=== PATIENT | female | born 1970 | race Caucasian/White ===

== ENCOUNTER 2016-10-28 21:37 | Emergency (ER) | payer OTHER ==
[~2016-10-28] VITALS: Ht 157.5 cm; Wt 53.0 kg
[~2016-10-28 21:37] MED LIST: CIPR500T4 PO; CYCL-319 PO; DOCU-144 PO; HYDR-3498 PO; METR500T PO; NAPR-260 PO
[2016-10-28 21:40] VITALS: Ht 157.5 cm; Wt 53.0 kg
[2016-10-29] MEDS ORDERED: AMO500 PO (00:12)
[2016-10-29] MEDS ORDERED: NPH10OT BOTH EARS (00:13)
[2016-10-29] MEDS ORDERED: IBUP-1542 PO (00:13)
--- NOTE | 2016-10-29 01:22 | ERD ---
ER Documentation Chief Complaint Date/Time DATE: 10/29/16 TIME: 01:20 Chief Complaint trung ear ache x 2 days HPI This is a 46-year-old female presents to the ER with a one-week history of cough and cold symptoms. Patient also has a sore throat. She is also bilateral ear pain. Patient denies any chest pain or any shortness of breath. She denies any fevers or chills. There are no sick contacts at home. ROS 12 point review of systems was done, all negative except per HPI. Medications Home Meds Active Scripts Ibuprofen* (Motrin*) 600 Mg Tab, 600 MG PO Q6, #30 TAB Prov:NAWAF BARBA 10/29/16 Neomycin/Polymyxin/Hydrocort* (Cortisporin* Otic) 10 Ml Susp, 4 DROP BOTH EARS QID for 7 Days, EA Prov:NAWAF BARBA 10/29/16 Amoxicillin* (Amoxicillin*) 500 Mg Cap, 500 MG PO BID for 10 Days, CAP Prov:NAWAF BARBA 10/29/16 Naproxen* (Naprosyn*) 500 Mg Tablet, 500 MG PO BID Y for PAIN AND/OR INFLAMMATION, #30 TAB Prov:Ami Fitzgerald PA-C 07/30/16 Docusate Sodium* (Colace*) 100 Mg Capsule, 100 MG PO TID, #30 CAP Prov:VIDYA GAN PA-C 01/02/16 Hydrocodone Bit-Acetaminophen* ([place]*) 5-325 Mg Tab, 1 TAB PO Q6 Y for PAIN, # 20 TAB Prov:VIDYA GAN PA-C 01/02/16 Metronidazole* (Flagyl*) 500 Mg Tablet, 500 MG PO BID for 7 Days, TAB Prov:VIDYA GANC 01/02/16 Ciprofloxacin Hcl* (Ciprofloxacin Hcl*) 500 Mg Tablet, 500 MG PO BID for 7 Days , TAB Prov:VIDYA GAN PA-C 01/02/16 Cyclobenzaprine Hcl* (Cyclobenzaprine Hcl*) 10 Mg Tablet, 10 MG PO TID, #20 TAB Prov:REDD REY PA-C 08/03/15 Hydrocodone Bit-Acetaminophen* ([place]*) 5-325 Mg Tab, 1 TAB PO Q6 Y for PAIN, # 10 TAB Prov:REDD REY PA-C 08/03/15 Naproxen* (Naprosyn*) 500 Mg Tablet, 500 MG PO BID Y for PAIN AND/OR INFLAMMATION, #30 TAB Prov:REDD REY PA-C 08/03/15 Allergies Allergies: Coded Allergies: No Known Allergies (Verified Allergy, Mild, 01/02/15) PMhx/Soc History of Surgery: Yes (BRAIN EMBOLUS) Anesthesia Reaction: No Hx Neurological Disorder: Yes (BRAIN EMBOLI 1987, 1995) Hx Respiratory Disorders: No Hx Cardiac Disorders: No Hx Psychiatric Problems: No Hx Miscellaneous Medical Probl: No Hx Alcohol Use: No Hx Substance Use: No Hx Tobacco Use: No Physical Exam Vitals Vital Signs Date Time Temp Pulse Resp B/P Pulse Ox O2 Delivery O2 Flow Rate FiO2 10/28/16 21:40 98.2 77 18 130/60 100 Physical Exam GENERAL: The patient is well-developed, well-nourished, in no acute distress. NECK: Cervical spine is non tender with no step off. Supple, no nuchal rigidity HEENT: Atraumatic. Pupils equal, round and reactive to light. Extraocular muscles are grossly intact. Conjunctivae pink, no discharge. Bilateral discharge from external auditory canals. bilateral tragus tenderness. Tonsilar erythema with no exudates or uvular deviation. Clear rhinorrhea. RESPIRATORY: Clear to auscultation bilaterally. There are no rales, wheezes or rhonchi. HEART: Regular rate and rhythm. No murmurs, clicks, rubs or gallops. EXTREMITIES: No clubbing or cyanosis. Full range of motion. Grossly neurovascularly intact. NEUROLOGIC: Alert and oriented. Cranial nerves II through XII are intact. SKIN: There is no rash. The skin is warm and dry. Procedures/MDM Differential diagnosis includes but is not limited to; Viral URI, allergic rhinitis, bronchitis, pertussis,pneumonia. is likely viral in etiology. Clinical suspicion for pneumonia is low as patient appears well, is not hypoxic or in any respiratory distress. Additionally, patient does have external otitis. She will be sent home with amoxicillin and with Corticosporin. Plan was discussed with patient they understand and agree. Patient needs to follow up with PCP in 1-2 days or return to ER sooner if symptoms worsen. Departure Diagnosis: Primary Impression: Otitis externa Condition: Stable Patient Instructions: External Ear Infection (Adult) Additional Instructions: Call your primary care doctor TOMORROW for an appointment during the next 1-2 days.See the doctor sooner or return here if your condition worsens before your appointment time. NAWAF BARBA Oct 29, 2016 01:22
== END 2016-10-29 00:18 | disposition home or self-care (01) ==
LOC: FTE 21:37
DX: H60.93 Unspecified otitis externa, bilateral (principal)
CPT/HCPCS: 99283

== ENCOUNTER 2017-05-14 01:33 | Emergency (ER) | payer OTHER ==
[~2017-05-14] VITALS: Ht 157.5 cm; Wt 52.0 kg
[~2017-05-14 01:33] MED LIST changes: +AMO500 PO; +IBUP-1542 PO; +NPH10OT BOTH EARS
[2017-05-14 01:38] VITALS: Ht 157.5 cm; Wt 52.0 kg
[2017-05-14] MEDS ORDERED: SOD CHLORIDE 0.9% 1,000 ML IV STA (02:01)
[2017-05-14] MEDS ORDERED: FAMOTIDINE 20 MG INJ INJ STA (02:01)
[2017-05-14] MEDS ORDERED: DIPHENHYDRAMINE 50 MG INJ IV STA (02:01)
[2017-05-14] MEDS ORDERED: METHYLPREDNISOLONE 125 MG INJ IV STA (02:01)
[2017-05-14] MEDS ORDERED: BEN25 PO (02:43)
[2017-05-14] MEDS ORDERED: PRED20TA PO (02:43)
--- NOTE | 2017-05-14 02:43 | ERD ---
ER Documentation Chief Complaint Date/Time DATE: 05/14/17 TIME: 02:41 Chief Complaint hives and total body itch after taking meloxicam HPI This is a 47-year-old female who presents to the emergency room for evaluation of a possible allergic reaction. The patient does state that she took a meloxicam today. She states that she has been feeling itching, and has had a red rash over her body. The patient denies any throat swelling or difficulty swallowing or breathing ROS All systems reviewed and are negative except as per history of present illness. Medications Home Meds Active Scripts Ibuprofen* (Motrin*) 600 Mg Tab, 600 MG PO Q6, #30 TAB Prov:NAWAF BARBA 10/29/16 Neomycin/Polymyxin/Hydrocort* (Cortisporin* Otic) 10 Ml Susp, 4 DROP BOTH EARS QID for 7 Days, EA Prov:NAWAF BARBA 10/29/16 Amoxicillin* (Amoxicillin*) 500 Mg Cap, 500 MG PO BID for 10 Days, CAP Prov:NAWAF BARBA 10/29/16 Naproxen* (Naprosyn*) 500 Mg Tablet, 500 MG PO BID Y for PAIN AND/OR INFLAMMATION, #30 TAB Prov:Ami Fitzgerald PA-C 07/30/16 Docusate Sodium* (Colace*) 100 Mg Capsule, 100 MG PO TID, #30 CAP Prov:VIDYA GAN PA-C 01/02/16 Hydrocodone Bit-Acetaminophen* ([place]*) 5-325 Mg Tab, 1 TAB PO Q6 Y for PAIN, # 20 TAB Prov:VIDYA GAN PA-C 01/02/16 Metronidazole* (Flagyl*) 500 Mg Tablet, 500 MG PO BID for 7 Days, TAB Prov:VIDYA GANC 01/02/16 Ciprofloxacin Hcl* (Ciprofloxacin Hcl*) 500 Mg Tablet, 500 MG PO BID for 7 Days , TAB Prov:VIDYA GAN PA-C 01/02/16 Cyclobenzaprine Hcl* (Cyclobenzaprine Hcl*) 10 Mg Tablet, 10 MG PO TID, #20 TAB Prov:REDD REY PA-C 08/03/15 Hydrocodone Bit-Acetaminophen* ([place]*) 5-325 Mg Tab, 1 TAB PO Q6 Y for PAIN, # 10 TAB Prov:REDD REY PA-C 08/03/15 Naproxen* (Naprosyn*) 500 Mg Tablet, 500 MG PO BID Y for PAIN AND/OR INFLAMMATION, #30 TAB Prov:REDD REY PA-C 08/03/15 Allergies Allergies: Coded Allergies: No Known Allergies (Verified Allergy, Mild, 01/02/15) PMhx/Soc History of Surgery: Yes (BRAIN EMBOLUS) Anesthesia Reaction: No Hx Neurological Disorder: Yes (BRAIN EMBOLI 1987, 1995) Hx Respiratory Disorders: No Hx Cardiac Disorders: No Hx Psychiatric Problems: No Hx Miscellaneous Medical Probl: No Hx Alcohol Use: No Hx Substance Use: No Hx Tobacco Use: No Physical Exam Vitals Vital Signs Date Time Temp Pulse Resp B/P Pulse Ox O2 Delivery O2 Flow Rate FiO2 05/14/17 01:38 99.7 103 18 117/67 97 Physical Exam INITIAL VITAL SIGNS: Reviewed by me GENERAL: The patient is well developed and appropriate for usual state of health in no apparent distress HEENT: No pharyngeal edema, pupils equal, round, and reactive to light. EOMI. There is no scleral icterus. NECK: C-spine is soft and supple, there is no meningismus. There is no cervical lymphadenopathy. LUNGS: Clear to auscultation bilaterally. There are no rales, wheezes or rhonchi. HEART: Regular rate and rhythm, no murmurs, clicks, rubs or gallops. ABDOMEN: Soft, non-tender, non-distended. There are bowel sounds in all four quadrants. No rebound or guarding. EXTREMITIES: There is no peripheral cyanosis or edema. No focal swelling or erythema. NEUROLOGICAL: The patient moves all four extremities with 5/5 strength. Cranial nerves II - XII are intact. Normal gait. Alert and oriented SKIN: Maculopapular rash noted over the torso and upper lower extremities, there is no apparent rash or petechiae. HEME/LYMPHATIC: There is no evidence of excessive bruising or lymphedema. PSYCHIATRIC: The patient does not appear anxious or depressed. Results 24 hrs Current Medications Medications (Trade) Dose Ordered Sig/Balaji Route PRN Reason Start Time Stop Time Status Last Admin Dose Admin Diphenhydramine HCl (Benadryl) 25 mg ONCE STAT IV 05/14/17 02:01 05/14/17 02:02 DC 05/14/17 02:09 Famotidine (Pepcid Iv) 20 mg ONCE STAT INJ 05/14/17 02:01 05/14/17 02:02 DC 05/14/17 02:10 Methylprednisolone Sodium Succinate 125 mg 125 mg ONCE STAT IV 05/14/17 02:01 05/14/17 02:02 DC 05/14/17 02:09 Sodium Chloride (NS) 1,000 ml @ 1,000 mls/hr Q1H STAT IV 05/14/17 02:01 05/14/17 03:00 05/14/17 02:09 Procedures/MDM This 47-year-old female presents to the ER for evaluation of possible allergic reaction. When I evaluated this patient she did have a diffuse rash noted over her body, no skin sloughing, no pharyngeal edema, she is tolerating her secretions and is in no acute distress. The patient was given a cocktail of Benadryl, Pepcid, and Solu-Medrol. Upon my reevaluation she states she is feeling better. I advised her to discontinue the use of meloxicam and she will be discharged home with a prescription for Benadryl at this time. Departure Diagnosis: Primary Impression: Allergic reaction Condition: Stable MIRANDA JOLLY DO May 14, 2017 02:43
[2017-05-14 02:55] VITALS: BP 122/71; PULSE 72; RESP 20
== END 2017-05-14 02:55 | disposition home or self-care (01) ==
LOC: E/R 01:33
DX: R21 Rash and other nonspecific skin eruption (principal); T39.395A Adverse effect of other nonsteroidal anti-inflammatory drugs [NSAID], initial encounter
CPT/HCPCS: 96374; 96375; J1200; J2930; J7030; Z7502; Z7610

== ENCOUNTER 2017-05-23 02:16 | Emergency (ER) | payer OTHER ==
[~2017-05-23] VITALS: Ht 157.5 cm; Wt 52.0 kg
[~2017-05-23 02:16] MED LIST changes: +BEN25 PO; +PRED20TA PO
[2017-05-23 02:20] VITALS: Ht 157.5 cm; Wt 52.0 kg
--- NOTE | 2017-05-23 03:56 | ERD ---
ER Documentation Chief Complaint Date/Time DATE: 05/23/17 TIME: 03:55 Chief Complaint right eye pain when she poke right eye w/ a linen HPI 47-year-old female presents to emergency department for complaints of right eye pain after being poked with a tip of a linen today. Patient's complains of pain sharp pain for/10 scale, is worse upon opening and closing the eye. Patient denies any vision changes. Patient denies any foreign body sensation in the eye. Patient denies any eye discharge. Patient did not take any medications help with symptoms. ROS All systems reviewed and are negative except as per history of present illness. Medications Home Meds Active Scripts Hydrocodone/Acetaminophen ([place] 5-325 Tablet) 1 Each Tablet, 1 TAB PO Q6H Y for SEVERE PAIN LEVEL 7-10, #7 TAB Prov:SOLOMON MENDOZA NP 05/23/17 Moxifloxacin Hcl* (Vigamox*) 0.5% - 3 Ml Opht, 1 DROP RIGHT EYE TID, #1 EA Prov:SOLOMON MENDOZA NP 05/23/17 Prednisone* (Prednisone*) 20 Mg Tab, 40 MG PO DAILY for 4 Days, TAB Prov:MIRANDA JOLLY DO 05/14/17 Diphenhydramine Hcl* (Benadryl*) 25 Mg Cap, 25 MG PO Q6 Y for ITCHING/RASH, #30 TAB Prov:MIRANDA JOLLY DO 05/14/17 Ibuprofen* (Motrin*) 600 Mg Tab, 600 MG PO Q6, #30 TAB Prov:NAWAF BARBA 10/29/16 Neomycin/Polymyxin/Hydrocort* (Cortisporin* Otic) 10 Ml Susp, 4 DROP BOTH EARS QID for 7 Days, EA Prov:NAWAF BARBA C 10/29/16 Amoxicillin* (Amoxicillin*) 500 Mg Cap, 500 MG PO BID for 10 Days, CAP Prov:NAWAF BARBA C 10/29/16 Naproxen* (Naprosyn*) 500 Mg Tablet, 500 MG PO BID Y for PAIN AND/OR INFLAMMATION, #30 TAB Prov:Ami Fitzgerald PA-C 07/30/16 Docusate Sodium* (Colace*) 100 Mg Capsule, 100 MG PO TID, #30 CAP Prov:VIDYA GANC 01/02/16 Hydrocodone Bit-Acetaminophen* ([place]*) 5-325 Mg Tab, 1 TAB PO Q6 Y for PAIN, # 20 TAB Prov:VIDYA GAN-C 01/02/16 Metronidazole* (Flagyl*) 500 Mg Tablet, 500 MG PO BID for 7 Days, TAB Prov:VIDYA GAN-C 01/02/16 Ciprofloxacin Hcl* (Ciprofloxacin Hcl*) 500 Mg Tablet, 500 MG PO BID for 7 Days , TAB Prov:VIDYA GAN-C 01/02/16 Cyclobenzaprine Hcl* (Cyclobenzaprine Hcl*) 10 Mg Tablet, 10 MG PO TID, #20 TAB Prov:REDD REY PA-C 08/03/15 Hydrocodone Bit-Acetaminophen* ([place]*) 5-325 Mg Tab, 1 TAB PO Q6 Y for PAIN, # 10 TAB Prov:REDD REY PA-C 08/03/15 Naproxen* (Naprosyn*) 500 Mg Tablet, 500 MG PO BID Y for PAIN AND/OR INFLAMMATION, #30 TAB Prov:REDD REY PA-C 08/03/15 Allergies Allergies: Coded Allergies: No Known Allergies (Verified Allergy, Mild, 01/02/15) PMhx/Soc History of Surgery: Yes (BRAIN EMBOLUS) Anesthesia Reaction: No Hx Neurological Disorder: Yes (BRAIN EMBOLI 1987, 1995) Hx Respiratory Disorders: No Hx Cardiac Disorders: No Hx Psychiatric Problems: No Hx Miscellaneous Medical Probl: No Hx Alcohol Use: No Hx Substance Use: No Hx Tobacco Use: No Smoking Status: Never smoker FmHx Family History: No coronary disease, No diabetes, No other Physical Exam Vitals Vital Signs Date Time Temp Pulse Resp B/P Pulse Ox O2 Delivery O2 Flow Rate FiO2 05/23/17 02:20 97.8 80 20 128/59 98 Physical Exam GENERAL: The patient is well developed and appropriate for usual state of health, in no apparent distress. HEENT: Atraumatic. Lateral eyes are PERRL EOM intact. Noted right eye conjunctiva to be erythematous and tearing. Left eye conjunctiva is normal. Ears : Normal tympanic membrane, no erythema or bulging. No ear canal swelling. No ear discharge. Nose: normal nasal turbinates, no erythema or swelling. Normal nasal discharge. Throat: oropharynx clear. No tonsillar swelling or tonsillar exudates. No lymphadenopathy. CHEST: Clear to auscultation bilaterally. There are no rales, wheezes or rhonchi. HEART: Regular rate and rhythm. No murmurs, clicks, rubs or gallops. No S3 or S4. ABDOMEN: Soft, nontender and nondistended. Good bowel sounds. No rebound or guarding. No gross peritonitis. No gross organomegaly or masses. No [place]keon sign or Mc[place] point tenderness. BACK: No midline or flank tenderness. EXTREMITIES: Equal pulses bilaterally. There is no peripheral clubbing, cyanosis or edema. No focal swelling or erythema. Full range of motion. Grossly neurovascularly intact. NEURO: Alert and oriented. Cranial nerves 2-12 intact. Motor strength in all 4 extremities with 5/5 strength. Sensation grossly intact. Normal speech and gait. SKIN: There is no apparent rash or petechia. The skin is warm and dry. HEMATOLOGIC AND LYMPHATIC: There is no evidence of excessive bruising or lymphedema. No gross cervical, axillary, or inguinal lymphadenopathy. Results 24 hrs Current Medications Medications (Trade) Dose Ordered Sig/Balaji Route PRN Reason Start Time Stop Time Status Last Admin Dose Admin Tetracaine HCl (Tetracaine 0.5% Steri-Unit Sujata) 1 drop ONCE ONCE RIGHT EYE 05/23/17 04:00 05/23/17 04:01 DC Fluorescein Sodium (Tflae-J-Jyowm) 1 strip ONCE ONCE RIGHT EYE 05/23/17 04:00 05/23/17 04:01 DC Procedure Note: After obtaining informed consent, the _right eye was numbed with tetracaine ophthalmic solution and was stained using fluorescein dye. After staining the eye, A Wood's lamp was used to evaluate the eye. There is no foreign body noted in the eye. Noted corneal abrasion on the upper quadrant of the right eye. Patient tolerated procedure well. Procedures/MDM Disposition decision making: Patient symptoms with which is consistent with a corneal abrasion. No foreign body noted he is no symptoms of any acute infection. No symptoms of any acute glaucoma, retinal detachment, no vision changes. No Michael sign, no symptoms of any hyphema. Prescription was given for Vigamox, [place] for pain, is advised to see eye doctor in 1-2 days, patient was advised to return to emergency department for worsening symptoms. Disposition: Home. Stable. SOLOMON MENDOZA NP May 23, 2017 03:56
[2017-05-23] MEDS ORDERED: TETRACAINE 0.5% 4 ML OPH RIGHT EYE ONE (04:00)
[2017-05-23] MEDS ORDERED: FLUORESCEIN STRIP RIGHT EYE ONE (04:00)
[2017-05-23] MEDS ORDERED: VIGA RIGHT EYE (05:02)
[2017-05-23] MEDS ORDERED: HYDR-906 PO (05:02)
== END 2017-05-23 05:11 | disposition home or self-care (01) ==
LOC: FTE 02:16
DX: S05.01XA Injury of conjunctiva and corneal abrasion without foreign body, right eye, initial encounter (principal); W26.8XXA Contact with other sharp object(s), not elsewhere classified, initial encounter; Y92.9 Unspecified place or not applicable
CPT/HCPCS: Z7502; Z7610; 99284

== ENCOUNTER 2017-06-09 00:38 | Emergency (ER) | payer OTHER ==
[~2017-06-09] VITALS: Wt 62.0 kg
[~2017-06-09 00:38] MED LIST changes: +HYDR-906 PO; +VIGA RIGHT EYE
[2017-06-09 01:45] VITALS: TEMP 98
--- NOTE | 2017-06-09 01:57 | ERA ---
ER Documentation Chief Complaint Date/Time DATE: 06/09/17 TIME: 01:57 Chief Complaint FUCHS X2 days HPI The patient is a 47-year-old female, presenting with acute on chronic right- sided headache for the last 2 days. She had similar symptoms previously, denies fever, blurred vision, facial pain, neck pain, chest pain, dyspnea, abdominal pain, vomiting with dysuria. She does not smoke nor drink, has a lot of stress in her life at this time Past medical history: History of brain embolism Past medical history: Surgery due to brain embolism many years ago ROS All systems reviewed and are negative except as per history of present illness. Medications Home Meds Active Scripts Ibuprofen* (Motrin*) 600 Mg Tab, 600 MG PO Q6H Y for PAIN, #20 TAB Prov:BETTIE LEWIS MD 06/09/17 Reported Medications Acetaminophen* (Tylenol*) 500 Mg Tab, 500 MG PO Q4H Y for MILD PAIN LEVEL 1-3, TAB 06/09/17 Discontinued Scripts Hydrocodone/Acetaminophen ([place] 5-325 Tablet) 1 Each Tablet, 1 TAB PO Q6H Y for SEVERE PAIN LEVEL 7-10, #7 TAB Prov:SOLOMON MENDOZA NP 05/23/17 Moxifloxacin Hcl* (Vigamox*) 0.5% - 3 Ml Opht, 1 DROP RIGHT EYE TID, #1 EA Prov:SOLOMON MENDOZA NP 05/23/17 Prednisone* (Prednisone*) 20 Mg Tab, 40 MG PO DAILY for 4 Days, TAB Prov:MIRANDA JOLLY DO 05/14/17 Diphenhydramine Hcl* (Benadryl*) 25 Mg Cap, 25 MG PO Q6 Y for ITCHING/RASH, #30 TAB Prov:MIRANDA JOLLY DO 05/14/17 Ibuprofen* (Motrin*) 600 Mg Tab, 600 MG PO Q6, #30 TAB Prov:NAWAF BARBA 10/29/16 Neomycin/Polymyxin/Hydrocort* (Cortisporin* Otic) 10 Ml Susp, 4 DROP BOTH EARS QID for 7 Days, EA Prov:NAWAF BARBA C 10/29/16 Amoxicillin* (Amoxicillin*) 500 Mg Cap, 500 MG PO BID for 10 Days, CAP Prov:NAWAF BARBA 10/29/16 Naproxen* (Naprosyn*) 500 Mg Tablet, 500 MG PO BID Y for PAIN AND/OR INFLAMMATION, #30 TAB Prov:Ami Fitzgerald PA-C 07/30/16 Docusate Sodium* (Colace*) 100 Mg Capsule, 100 MG PO TID, #30 CAP Prov:VIDYA GANC 01/02/16 Hydrocodone Bit-Acetaminophen* ([place]*) 5-325 Mg Tab, 1 TAB PO Q6 Y for PAIN, # 20 TAB Prov:VIDYA GAN PA-C 01/02/16 Metronidazole* (Flagyl*) 500 Mg Tablet, 500 MG PO BID for 7 Days, TAB Prov:VIDYA GNA PA-C 01/02/16 Ciprofloxacin Hcl* (Ciprofloxacin Hcl*) 500 Mg Tablet, 500 MG PO BID for 7 Days , TAB Prov:VIDYA GAN PA-C 01/02/16 Cyclobenzaprine Hcl* (Cyclobenzaprine Hcl*) 10 Mg Tablet, 10 MG PO TID, #20 TAB Prov:REDD REY PA-C 08/03/15 Hydrocodone Bit-Acetaminophen* ([place]*) 5-325 Mg Tab, 1 TAB PO Q6 Y for PAIN, # 10 TAB Prov:REDD REY PA-C 08/03/15 Naproxen* (Naprosyn*) 500 Mg Tablet, 500 MG PO BID Y for PAIN AND/OR INFLAMMATION, #30 TAB Prov:REDD REY PA-C 08/03/15 Allergies Allergies: Coded Allergies: No Known Allergies (Unverified Allergy, Unknown, 06/09/17) PMhx/Soc History of Surgery: Yes (BRAIN EMBOLUS) Anesthesia Reaction: No Hx Neurological Disorder: Yes (BRAIN EMBOLI 1987, 1995) Hx Respiratory Disorders: No Hx Cardiac Disorders: No Hx Psychiatric Problems: No Hx Miscellaneous Medical Probl: No Hx Alcohol Use: No Hx Substance Use: No Hx Tobacco Use: No Physical Exam Vitals Vital Signs Date Time Temp Pulse Resp B/P Pulse Ox O2 Delivery O2 Flow Rate FiO2 06/09/17 03:19 56 12 117/73 100 Room Air 06/09/17 01:45 98.0 68 16 137/77 100 Room Air 06/09/17 01:08 98.0 66 20 148/90 100 Physical Exam Const: No acute distress.Very anxious Head: Atraumatic. Eyes: Normal Conjunctiva. ENT: Normal External Ears, Nose and Mouth. Neck: Full range of motion. No meningismus. Resp: Clear to auscultation bilaterally. Cardio: Regular rate and rhythm. Abd: Soft, non distended, normal bowel sounds, non tender. Skin: No petechiae or rashes. Back: No midline or flank tenderness. Ext: No cyanosis, or edema. Neur: Awake and alert. No focal deficit Psych: Normal Mood and Affect. Result Diagram: 06/09/17 0200 06/09/17 0200 Results 24 hrs Laboratory Tests Test 06/09/17 02:00 White Blood Count 4.810^3/ul Red Blood Count 4.1810^6/ul Hemoglobin 12.5g/dl Hematocrit 36.9% Mean Corpuscular Volume 88.3fl Mean Corpuscular Hemoglobin 29.9pg Mean Corpuscular Hemoglobin Concent 33.9g/dl Red Cell Distribution Width 12.7% Platelet Count 07280^3/UL Mean Platelet Volume 10.0fl Neutrophils % 51.9% Lymphocytes % 29.7% Monocytes % 14.7% Eosinophils % 2.7% Basophils % 0.8% Nucleated Red Blood Cells % 0.0/100WBC Neutrophils # (Manual) 2.510^3/ul Lymphocytes # 1.410^3/ul Monocytes # 0.710^3/ul Eosinophils # 0.110^3/ul Basophils # 0.010^3/ul Nucleated Red Blood Cells # 0.010^3/ul Prothrombin Time 12.3Sec Prothrombin Time Ratio 1.0 INR International Normalized Ratio 0.91 Activated Partial Thromboplast Time 28.0Sec Sodium Level 137mmol/L Potassium Level 3.4mmol/L Chloride Level 106mmol/L Carbon Dioxide Level 26mmol/L Anion Gap 8 Blood Urea Nitrogen 13mg/dl Creatinine 0.52mg/dl Glucose Level 83mg/dl Calcium Level 9.2mg/dl Current Medications Medications (Trade) Dose Ordered Sig/Balaji Route PRN Reason Start Time Stop Time Status Last Admin Dose Admin Ondansetron HCl (Zofran Inj) 4 mg ONCE STAT IV 9/9/17 02:03 06/09/17 02:08 DC 06/09/17 02:11 Morphine Sulfate (morphine) 4 mg ONCE STAT IV 06/09/17 02:03 06/09/17 02:08 DC 06/09/17 02:12 Potassium Chloride (Klor-Con 20) 20 meq ONCE ONCE PO 06/09/17 04:19 06/09/17 04:20 DC 06/09/17 04:30 Procedures/[place] [id number] Radiology Main Line: [phone] DIAGNOSTIC IMAGING REPORT Patient: PANCHO CASTORENA : 1970 Age: 47 Sex: F MR #: [id number] DOS: 06/09/17 0203 Ordering MD: BETTIE LEWIS MD Location: E/R Room/Bed: PROCEDURE: Noncontrast CT Head. CLINICAL INDICATION: Pain. TECHNIQUE: Noncontrast CT of the head was obtained. The administered radiation dose was CTDI vol = 45 mGy, DLP = 720 mGy-cm. One or more of the following dose reduction techniques were used: automated exposure control, adjustment of the mA and/or kV according to patient size and/or use of iterative reconstruction technique. COMPARISON: 10/01/2014 FINDINGS: The ventricles and cortical sulci are mild to moderately enlarged. There is mild to moderate decreased attenuation within the periventricular and subcortical white matter compatible with chronic microvascular changes. 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 There are no definite changes compared to the prior exam. There is no acute intracranial hemorrhage or extra-axial fluid collection. There is no mass effect. No midline shift is identified. There is no loss of allred-white differentiation to suggest acute infarction. The orbits are within normal limits. The paranasal sinuses are well aerated. No destructive osseous lesion is identified. IMPRESSION: No acute findings. Mild to moderate diffuse parenchymal volume loss and chronic microvascular changes. RPTAT: HIKT .Mono Dewitt MD, Date Time Electronically viewed and signed by .Mono Dewitt MD, MD on 06/09/2017 03:22 .T/ CC: BETTEI LEWIS MD MEDICAL MAKING DECISION: The patient is a 47-year-old female, presenting with acute on chronic headache of unclear etiology, acute hypokalemia. She was treated with morphine 4 mg IV for pain, Zofran 4 mg IV for nausea and potassium chloride 20 mEq p.o. for acute hypokalemia with good response The differential diagnoses considered include but are not limited to subarachnoid hemorrhage, occult trauma, CVA, meningitis, encephalitis, hypertension, tension, migraine, cluster, narcotic withdrawal, cervical spine disease. Departure Diagnosis: Primary Impression: Headache Additional Impression: Hypokalemia Condition: Good Comments She was discharged with Motrin I discussed the findings with the patient. I advised the patient to follow-up with the primary physician in about 1-2 days, sooner if needed and return if any concern. The patient's blood pressure was elevated (>120/80) but appears stable without evidence of hypertension emergency or urgency. The patient was counseled about the risks of hypertension and urged to pursue outpatient monitoring and therapy within a week with their primary care physician. BETTIE LEWIS MD Jun 09, 2017 01:57
[2017-06-09] MEDS ORDERED: morphine 4 MG/ML VIAL IV STA (02:03)
[2017-06-09] MEDS ORDERED: ONDANSETRON 4 MG INJ IV STA (02:03)
[2017-06-09 02:28] LABS: BASOPHILS % 0.8 % (0.0-2.0); EOSINOPHILS # 0.1 10^3/ul (0.0-0.5); EOSINOPHILS % 2.7 % (0.0-7.0); HEMATOCRIT 36.9 % (37.0-47.0); HEMOGLOBIN 12.5 g/dl (12.0-16.0); LYMPHOCYTES # 1.4 10^3/ul (0.8-2.9); LYMPHOCYTES % 29.7 % (15.0-51.0); MEAN CORPUSCULAR HEMOGLOBIN 29.9 pg (29.0-33.0); MEAN CORPUSCULAR HGB CONC 33.9 g/dl (32.0-37.0); MEAN CORPUSCULAR VOLUME 88.3 fl (82.0-101.0); MONOCYTE # 0.7 10^3/ul (0.3-0.9); MONOCYTES % 14.7 % (0.0-11.0); NEUTROPHILS % 51.9 % (39.0-77.0); PLATELET COUNT 263 10^3/UL (140-415); RED BLOOD COUNT 4.18 10^6/ul (4.20-5.40); RED CELL DISTRIBUTION WIDTH 12.7 % (11.5-14.5); WHITE BLOOD COUNT 4.8 10^3/ul (4.8-10.8)
[2017-06-09 02:45] LABS: INR 0.91; PROTIME 12.3 Sec (12.2-14.2)
[2017-06-09 02:52] LABS: CALCIUM 9.2 mg/dl (8.4-10.2); CREATININE 0.52 mg/dl (0.44-1.00); POTASSIUM 3.4 mmol/L (3.5-5.1)
[2017-06-09] MEDS ORDERED: TYL500 PO (03:10)
--- NOTE | 2017-06-09 03:22 | RADRPT ---
PROCEDURE: Noncontrast CT Head. CLINICAL INDICATION: Pain. TECHNIQUE: Noncontrast CT of the head was obtained. The administered radiation dose was CTDI vol = 45 mGy, DLP = 720 mGy-cm. One or more of the following dose reduction techniques were used: automate d exposure control, adjustment of the mA and/or kV according to patient size and/or use of iterative reconstruction technique. COMPARISON: 10/01/2014 FINDINGS: The ventricles and cortical sulci are mild to moderately enlarged. There is mild to moderate decrea sed attenuation within the periventricular and subcortical white matter compatible with chronic micr ovascular changes. Prior bilateral pterional craniotomies are noted with aneurysm clips in the [place] region s bilaterally. 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 There are no definite changes compared to the prior exam. There is no acute intracranial hemorrhage or extra-axial fluid collection. There is no mass effect. No midline shift is identified. There is no loss of allred-white differentiation to suggest acute inf arction. The orbits are within normal limits. The paranasal sinuses are well aerated. No destructive osseous lesion is identified. IMPRESSION: No acute findings. Mild to moderate diffuse parenchymal volume loss and chronic microvascular gary es. RPTAT: HIKT .Mono Dewitt MD, MD Date Time Electronically viewed and signed by .Mono Dewitt MD, MD on 06/09/2017 03:22 .T/
[2017-06-09] MEDS ORDERED: POTASSIUM CHLORIDE (SR) 20 MEQ TAB PO ONE (04:19)
[2017-06-09 04:30] VITALS: BP 119/64; PULSE 64; RESP 16
[2017-06-09] MEDS ORDERED: IBUP-1542 PO (04:43)
== END 2017-06-09 04:50 | disposition home or self-care (01) ==
LOC: E/R 00:38
DX: R51 Headache (principal); E87.6 Hypokalemia; R40.2142 Coma scale, eyes open, spontaneous, at arrival to emergency department; R40.2252 Coma scale, best verbal response, oriented, at arrival to emergency department; R40.2362 Coma scale, best motor response, obeys commands, at arrival to emergency department; R07.9 Chest pain, unspecified
CPT/HCPCS: 36415; 70450; 80048; 85025; 85610; 85730; 96374; 96375; J2270; J2405; Z7502; Z7610

== ENCOUNTER 2017-06-23 04:12 | Emergency (ER) | payer OTHER ==
[~2017-06-23] VITALS: Ht 154.9 cm; Wt 52.0 kg
[~2017-06-23 04:12] MED LIST changes: -AMO500 PO; -BEN25 PO; -CIPR500T4 PO; -CYCL-319 PO; -DOCU-144 PO; -HYDR-3498 PO; -HYDR-906 PO; -METR500T PO; -NAPR-260 PO; -NPH10OT BOTH EARS; -PRED20TA PO; +TYL500 PO; -VIGA RIGHT EYE
[2017-06-23 04:17] VITALS: Ht 154.9 cm; Wt 52.0 kg
[2017-06-23] MEDS ORDERED: ELIM TOP (04:40)
[2017-06-23] MEDS ORDERED: CETI10CA PO (04:43)
[2017-06-23] MEDS ORDERED: HYDR-842 PO (04:43)
--- NOTE | 2017-06-23 04:48 | ERA ---
ER Documentation Chief Complaint Date/Time DATE: 06/23/17 TIME: 04:43 Chief Complaint generalize body rash/itch x 2 weeks HPI 47-year-old female presented with a chief complaint of rash 2 weeks. Patient states that the rash is in multiple areas of the body. Has stated that she sees bugs that have crawl out of her closed. Patient has a picture of the vitals are most consistent with bedbugs. Patient states that the itching is worse at night. Patient has no medical conditions and denies daily use of any medications. Patient has had facial reconstruction surgeries. Denies fever, rapid progression of symptoms, recent antibiotic use, symptomatic close contacts , diabetes, pain, history of opening in the skin or identifiable trigger/by. Patients vaccination status is up to date. No recent travel. Patient has no other complaints and describes no other associated manifestations. Nursing notes have been reviewed and are consistent with history given. ROS All systems reviewed and are negative except as per history of present illness. Medications Home Meds Active Scripts Cetirizine Hcl* (Zyrtec*) 10 Mg Capsule, 10 MG PO DAILY for 10 Days, TAB Prov:BETTIE ABREU PA-C 06/23/17 Hydroxyzine Hcl* (Atarax*) 25 Mg Tab, 25 MG PO QHS Y for ITCHING for 10 Days, # 10 TAB Prov:BETTIE ABREU PA-C 06/23/17 Permethrin* (Elimite*) 5% Cr, 1 APPLIC TOP ONCE for 1 Day, TUB Prov:BETTIE ABREU PA-C 06/23/17 Ibuprofen* (Motrin*) 600 Mg Tab, 600 MG PO Q6H Y for PAIN, #20 TAB Prov:BETTIE LEWIS MD 06/09/17 Reported Medications Acetaminophen* (Tylenol*) 500 Mg Tab, 500 MG PO Q4H Y for MILD PAIN LEVEL 1-3, TAB 06/09/17 Allergies Allergies: Coded Allergies: No Known Allergies (Unverified Allergy, Unknown, 06/09/17) PMhx/Soc History of Surgery: Yes Anesthesia Reaction: No Hx Neurological Disorder: Yes (BRAIN EMBOLI 1987, 1995) Hx Respiratory Disorders: No Hx Cardiac Disorders: No Hx Psychiatric Problems: No Hx Miscellaneous Medical Probl: No Hx Alcohol Use: No Hx Substance Use: No Hx Tobacco Use: No Smoking Status: Never smoker Physical Exam Vitals Vital Signs Date Time Temp Pulse Resp B/P Pulse Ox O2 Delivery O2 Flow Rate FiO2 06/23/17 04:17 97.9 77 20 130/75 98 Physical Exam Const: Healthy-appearing. Well-nourished. Well-developed. No acute distress. Skin: Erythematous macular lesions on the upper thighs and near the elbows. No lichenification noted. Mild excoriation from chronic scratching. No plaques or scales.. No petechia. No ulcer, induration, jaundice. Good turgor. Ext: No cyanosis or edema noted. Head: Normocephalic. As noted in skin exam. Eyes: Non-injected; No scleral erythema, or discharge. EOMI and RODRIGO bilaterally. Ears: Normal External Ears, EACs clear, TM normal bilaterally without erythema. Nose: Normal nose without discharge, septal deviation, or sinus tenderness. Oral: No oral edema visualized. Mucous membranes moist and pink. Neck: No cervical lymphadenopathy, or masses. Trachea midline. Supple ~ No meningismus. Pulm: Good air movement in upper and lower respiratory tracts. No dyspnea, stridor, tripoding or drooling. Clear to auscultation bilaterally. Cardio: Regular rate and rhythm. No JVD grossly observed. Radial and posterior tibial pulses 2+ bilaterally. No cyanosis. Capillary refill less than 2 seconds. Abd: Soft, non tender, non distended. No guarding. Normal bowel sounds. MS: Normal motor strength, normal tone with gross examination. Back: No midline or flank tenderness. Neur: Neurovascularly intact bilaterally. Awake, alert and oriented x3. Procedures/MDM Well-appearing 47-year-old female presented with a chief complaint of rash 2 weeks as described in history and physical examination. Patient signs and symptoms are most consistent with bedbugs versus other pediculosis type infection. I will suspicion for bacterial involvement, fungal involvement or serious bacterial/systemic infection. Patient will be given pediculosis to be applied t on day 1 and on day 14. Patient will also be given hydroxyzine for itch nightly and cetirizine every morning. I have spoke with the patient regarding their condition and future management. They have verbally responded that they understand their status and treatment plan. The patients vitals are stable, and their current condition is appropriate for discharge. The patient will be given discharge instructions with return precautions. Departure Diagnosis: Primary Impression: Pediculosis Additional Impression: Mixed pediculosis infestation Condition: Stable Patient Instructions: Bedbugs Additional Instructions: Brittney un seguimiento con quezada PCP dentro de los prximos 1-3 sanders para ricardo evaluaci n ms completa y ricardo posible derivacin a un especialista. Devuelva el departamento de emergencia inmediatamente si los sntomas empeoran o cambian. Si tiene alguna pregunta con respecto a los medicamentos, consulte con quezada farmac utico o con nosotros antes de salir. Si se producen reacciones adversas mientras dale kat[facility] medicamentos, suspenda el tratamiento y regrese inmediatamente al servicio de urgencias. [place] [facility] medicamentos segn las indicaciones y complete el curso completo del tratamiento. BETTIE ABREU PA-C Jun 23, 2017 04:48
== END 2017-06-23 04:52 | disposition home or self-care (01) ==
LOC: FTE 04:12
DX: B85.4 Mixed pediculosis and phthiriasis (principal)
CPT/HCPCS: 99283

== ENCOUNTER 2017-08-16 06:31 | Emergency (ER) | payer OTHER ==
[~2017-08-16] VITALS: Ht 160 cm; Wt 62.0 kg
[~2017-08-16 06:31] MED LIST changes: +CETI10CA PO; +ELIM TOP; +HYDR-842 PO
[2017-08-16 06:33] VITALS: Ht 160 cm; Wt 62.0 kg
[2017-08-16] MEDS ORDERED: PRED20TA PO (06:55)
[2017-08-16] MEDS ORDERED: BEN25 PO (06:55)
[2017-08-16] MEDS ORDERED: predniSONE 20 MG TAB PO ONE (07:00)
[2017-08-16] MEDS ORDERED: DIPHENHYDRAMINE 50 MG INJ IM ONE (07:00)
--- NOTE | 2017-08-16 07:00 | ERD ---
ER Documentation Chief Complaint Chief Complaint rash HPI 47-year-old female took meloxicam a few days ago and developed a pruritic rash over the last 2 days. She describes as diffuse, pruritic, but no shortness of breath, facial swelling. She has not tried any new foods, medications besides this one, lotions, creams. She has no known allergies. ROS All systems reviewed and are negative except as per history of present illness. Medications Home Meds Active Scripts Diphenhydramine Hcl* (Benadryl*) 25 Mg Cap, 25 MG PO Q6, #30 CAP Prov:MARU ENGLAND PA-C 08/16/17 Prednisone* (Prednisone*) 20 Mg Tab, 40 MG PO DAILY for 4 Days, TAB Prov:MARU ENGLAND PA-C 08/16/17 Cetirizine Hcl* (Zyrtec*) 10 Mg Capsule, 10 MG PO DAILY for 10 Days, TAB Prov:BETTIE ABREU PA-C 06/23/17 Hydroxyzine Hcl* (Atarax*) 25 Mg Tab, 25 MG PO QHS Y for ITCHING for 10 Days, # 10 TAB Prov:BETTIE ABREU PA-C 06/23/17 Permethrin* (Elimite*) 5% Cr, 1 APPLIC TOP ONCE for 1 Day, TUB Prov:BETTIE ABREU PA-C 06/23/17 Ibuprofen* (Motrin*) 600 Mg Tab, 600 MG PO Q6H Y for PAIN, #20 TAB Prov:BETTIE LEWIS MD 06/09/17 Reported Medications Acetaminophen* (Tylenol*) 500 Mg Tab, 500 MG PO Q4H Y for MILD PAIN LEVEL 1-3, TAB 06/09/17 Allergies Allergies: Coded Allergies: meloxicam (Unverified Allergy, Intermediate, 08/16/17) PMhx/Soc Medical and Surgical Hx: pt denies Medical Hx, pt denies Surgical Hx History of Surgery: Yes (brain, c/s x2) Anesthesia Reaction: No Hx Neurological Disorder: Yes (BRAIN EMBOLI 1987, 1995) Hx Respiratory Disorders: No Hx Cardiac Disorders: No Hx Psychiatric Problems: No Hx Miscellaneous Medical Probl: No Hx Alcohol Use: No Hx Substance Use: No Hx Tobacco Use: No Smoking Status: Never smoker Physical Exam Vitals Vital Signs Date Time Temp Pulse Resp B/P Pulse Ox O2 Delivery O2 Flow Rate FiO2 08/16/17 06:33 97.2 68 16 139/66 99 Physical Exam Const: Well-appearing, no acute distress Head: Atraumatic Eyes: Normal Conjunctiva ENT: Normal External Ears, Nose and Mouth. Neck: Full range of motion..~ No meningismus. Resp: Clear to auscultation bilaterally Cardio: Regular rate and rhythm, no murmurs Abd: Soft, non tender, non distended. Normal bowel sounds Skin: Scattered erythematous hives, no vesicles, no purpura, no petechiae. Back: No midline or flank tenderness Ext: No cyanosis, or edema Neur: Awake and alert Psych: Normal Mood and Affect Results 24 hrs Current Medications Medications (Trade) Dose Ordered Sig/Balaji Route PRN Reason Start Time Stop Time Status Last Admin Dose Admin Diphenhydramine HCl (Benadryl) 25 mg ONCE ONCE IM 08/16/17 07:00 08/16/17 07:01 Prednisone (Prednisone) 40 mg ONCE ONCE PO 08/16/17 07:00 08/16/17 07:01 Procedures/MDM 47-year-old female comes in with a mild allergic reaction to meloxicam, she finds presents with a pruritic rash. No signs of cellulitis, purpura, petechiae , angioedema, respiratory distress. Departure Diagnosis: Primary Impression: Allergic reaction Condition: Good Patient Instructions: Allergic Reaction, Drug MARU ENGLAND PA-C Aug 16, 2017 07:00
== END 2017-08-16 07:31 | disposition home or self-care (01) ==
LOC: FTE 06:31
DX: R21 Rash and other nonspecific skin eruption (principal)
CPT/HCPCS: 96372; J1200; J7512; Z7502

== ENCOUNTER 2017-10-19 22:38 | Emergency (ER) | END 2017-10-20 03:10 | disposition home or self-care (01) ==

== ENCOUNTER 2017-11-01 01:56 | Emergency (ER) | END 2017-11-01 05:35 | disposition home or self-care (01) ==

== ENCOUNTER 2017-11-03 01:54 | Emergency (ER) | END 2017-11-03 06:43 | disposition home or self-care (01) ==

== ENCOUNTER 2017-11-22 05:48 | Emergency (ER) | END 2017-11-22 07:23 | disposition home or self-care (01) ==

== ENCOUNTER 2017-11-23 20:18 | Emergency (ER) | END 2017-11-23 20:51 | disposition home or self-care (01) ==

== ENCOUNTER 2018-02-05 02:39 | Emergency (ER) | END 2018-02-05 07:30 | disposition home or self-care (01) ==